=== PATIENT | female | born 1975 | race Two or more races ===

== ENCOUNTER 2018-09-04 22:11 | Observation (INO) | payer MEDICAID ==
[~2018-09-04] VITALS: Ht 142.2 cm; Wt 59.4 kg
[2018-09-04] MEDS ORDERED: PNV1TABL50 MT (23:29)
[2018-09-04] MEDS ORDERED: DEXT 5%/LR + PITOCIN 20UNITS/L 1,000 ML IV SCH (23:29)
[2018-09-04] MEDS ORDERED: METHYLERGONOVINE MALEATE 0.2 MG/ML IM PRN (23:30)
[2018-09-04] MEDS ORDERED: CARBOPROST TROMETHAMINE 250 MCG/ML AMPUL IM PRN (23:30)
[2018-09-04] MEDS: LACTATED RINGERS 1,000 ML IV SCH (23:44)
[2018-09-04 23:53] LABS: BASOPHILS % 0.7 % (0.0-2.0); EOSINOPHILS % 1.7 % (0.0-5.0); HEMATOCRIT. 39.9 % (36.0-48.0); HEMOGLOBIN. 13.9 g/dL (12.0-16.0); LYMPHOCYTES % 14.7 % (20.0-50.0); MEAN CORPUSCULAR HEMOGLOBIN 32.4 pg (28.0-32.0); MEAN CORPUSCULAR VOLUME 93.2 fL (81.0-99.0); MEAN PLATELET VOLUME 7.7 fl (7.4-10.4); MONOCYTES % 6.9 % (2.0-8.0); PLATELET 215 x1000/uL (130-400); RED BLOOD CELL COUNT 4.28 mill/uL (4.2-5.4); RED CELL DISTRIBUTION WIDTH 15.3 % (11.6-14.6)
[2018-09-05] VITALS (8 sets, daily range): BP systolic 96–131; BP diastolic 51–89
[2018-09-05 00:19] LABS: CLARITY URINE CLEAR (CLEAR); COLOR URINE YELLOW (YELLOW); KETONES URINE NEGATIVE (NEGATIVE); LEUKOCYTE ESTERASE URINE TRACE (NEGATIVE); NITRITE URINE NEGATIVE (NEGATIVE); OCCULT BLOOD URINE 1+ (NEGATIVE); PH URINE 6.5 (4.5-8.0); PROTEIN URINE NEGATIVE (NEGATIVE); SPECIFIC GRAVITY URINE 1.006 (1.005-1.030); UROBILINOGEN URINE 0.2 E.U./dL (0.2-1.0)
[2018-09-05 00:22] LABS: INR 0.9; PARTIAL THROMBOPLASTIN TIME 27.8 sec (23.4-31.0); PROTHROMBIN TIME 9.4 sec (9.6-11.0)
[2018-09-05 00:29] LABS: *AMPHETAMINES SCREEN URINE NEGATIVE (NEGATIVE); *BARBITURATES SCREEN URINE NEGATIVE (NEGATIVE); *BENZODIAZEPINES SCREEN URINE NEGATIVE (NEGATIVE); *COCAINE SCREEN URINE NEGATIVE (NEGATIVE)
[2018-09-05 00:30] LABS: CANNABINOID URINE SCREEN NEGATIVE (NEGATIVE); METHADONE URINE SCREEN NEGATIVE (NEGATIVE); OPIATES URINE SCREEN NEGATIVE (NEGATIVE); PHENCYCLIDINE URINE SCREEN NEGATIVE (NEGATIVE)
[2018-09-05] MEDS: LACTATED RINGERS 1,000 ML IV SCH ×2 (00:53→21:15)
[2018-09-05] MEDS ORDERED: ROPIVACAINE HCL/PF EPIDURAL 200 ML EPI SCH (01:15)
[2018-09-05] MEDS ORDERED: FENTANYL CITRATE/PF 50MCG/ML 2ML VIAL ONE (01:18)
[2018-09-05] MEDS ORDERED: MORPHINE SULFATE/PF 1MG/ML 10ML AMP ONE (01:53)
[2018-09-05] MEDS ORDERED: CEFAZOLIN SODIUM 1000MG/VIAL ONE (01:53)
[2018-09-05] MEDS ORDERED: OXYTOCIN 10 UNITS/ML 1ML ONE (01:53)
[2018-09-05] MEDS ORDERED: CITRIC ACID/SODIUM CITRATE SOLN 30ML UDC PO SCH (02:00)
[2018-09-05] MEDS ORDERED: OXYCODONE HCL/ACETAMINOPHEN 5/325MG TABLET PO PRN (02:45)
[2018-09-05] MEDS ORDERED: MIDAZOLAM HCL 2 MG/2 ML VIAL ONE (02:45)
[2018-09-05] MEDS ORDERED: HEMORRHOIDAL SUPP PR PRN (02:45)
[2018-09-05] MEDS ORDERED: BISACODYL 10MG SUPP PR PRN (02:45)
[2018-09-05] MEDS ORDERED: ONDANSETRON HCL 4MG/2ML INJ IV PRN ×2 (02:45→03:45)
[2018-09-05] MEDS ORDERED: HYDROCODONE/ACETAMINOPHEN 5/325MG TABLET PO PRN (02:45)
[2018-09-05] MEDS ORDERED: ONDANSETRON HCL 4MG/2ML INJ ONE (02:50)
[2018-09-05] MEDS ORDERED: DIPHENHYDRAMINE 50MG/ML VIAL IV PRN (03:45)
[2018-09-05] MEDS ORDERED: BUTORPHANOL TARTRATE 2 MG/ML VIAL IV PRN (03:45)
[2018-09-05] MEDS ORDERED: BUTORPHANOL TARTRATE 2 MG/ML VIAL IM PRN (03:45)
[2018-09-05] MEDS ORDERED: NALOXONE HCL 0.4 MG/ML 1ML VIAL IV PRN (03:45)
[2018-09-05] MEDS: DEXT 5%/LR + PITOCIN 20UNITS/L 1,000 ML IV SCH ×2 (03:48→12:05)
[2018-09-05] MEDS: ACETAMINOPHEN 325MG TABLET PO PRN ×3 (06:59→21:51)
[2018-09-05] MEDS: MAGNESIUM/ALUMINUM HYDROXIDE/SIMETHICONE 30ML UDC PO SCH ×4 (07:30→20:49)
[2018-09-05] MEDS: SIMETHICONE 80MG TABLET CHEW PO SCH ×4 (08:00→20:49)
[2018-09-05] MEDS: PRENATAL VIT/FE FUMARATE/FA TABLET PO SCH ×2 (09:00→16:44)
[2018-09-05 10:49] LABS: HEPATITIS B SURFACE ANTIGEN NEGATIVE
[2018-09-05] MEDS ORDERED: DEXT 5%/LR + PITOCIN 20UNITS/L 1,000 ML IV ONE (11:56)
[2018-09-05] MEDS ORDERED: METHYLERGONOVINE MALEATE 0.2 MG/ML ONE (13:17)
[2018-09-05] MEDS ORDERED: CARBOPROST TROMETHAMINE 250 MCG/ML AMPUL IM ONE (13:17)
[2018-09-05] MEDS ORDERED: LIDOCAINE HCL 2%/EPINEPHRINE 1:100,000 20 ML VIAL INFIL ONE (13:25)
[2018-09-05] MEDS: LANOLIN OINT 7GM TUBE TOP PRN (16:46)
[2018-09-05] MEDS: DOCUSATE SODIUM 100MG CAPSULE PO SCH (20:49)
[2018-09-06] MEDS: MAGNESIUM/ALUMINUM HYDROXIDE/SIMETHICONE 30ML UDC PO SCH ×5 (00:44→20:46)
[2018-09-06] MEDS: SIMETHICONE 80MG TABLET CHEW PO SCH ×4 (00:45→20:46)
[2018-09-06] MEDS: DOCUSATE SODIUM 100MG CAPSULE PO SCH ×2 (00:45→20:45)
[2018-09-06] MEDS: IBUPROFEN 800MG TABLET PO PRN ×3 (00:47→14:47)
[2018-09-06 04:00] VITALS: BP 111/82
[2018-09-06 07:02] LABS: BASOPHILS % 0.3 % (0.0-2.0); EOSINOPHILS % 1.7 % (0.0-5.0); HEMATOCRIT. 23.8 % (36.0-48.0); HEMOGLOBIN. 8.2 g/dL (12.0-16.0); LYMPHOCYTES % 8.8 % (20.0-50.0); MEAN CORPUSCULAR HEMOGLOBIN 32.4 pg (28.0-32.0); MEAN CORPUSCULAR VOLUME 94.3 fL (81.0-99.0); MEAN PLATELET VOLUME 7.4 fl (7.4-10.4); MONOCYTES % 6.5 % (2.0-8.0); NEUTROPHILS % 82.7 % (40.0-76.0); PLATELET 149 x1000/uL (130-400); RED BLOOD CELL COUNT 2.53 mill/uL (4.2-5.4); RED CELL DISTRIBUTION WIDTH 15.1 % (11.6-14.6)
[2018-09-06 09:00] VITALS: BP 95/62
[2018-09-06] MEDS: PRENATAL VIT/FE FUMARATE/FA TABLET PO SCH (09:02)
[2018-09-06] MEDS: FERROUS SULFATE 325MG TABLET PO SCH ×3 (09:02→18:21)
[2018-09-06] MEDS: IBUPROFEN 400MG TABLET PO PRN (09:03)
[2018-09-06] MEDS: LANOLIN OINT 7GM TUBE TOP PRN (09:04)
[2018-09-06 17:00] VITALS: BP 94/59
[2018-09-06] MEDS: ACETAMINOPHEN WITH CODEINE 300/30MG TABLET PO PRN ×2 (19:31→23:24)
[2018-09-06 20:00] VITALS: BP 119/69
[2018-09-06] MEDS ORDERED: NEOMY SULF/BACITRAC ZN/POLY OINT 28GM TOP SCH (22:00)
[2018-09-07 00:01] VITALS: BP 103/57
[2018-09-07 04:30] VITALS: BP 125/77
[2018-09-07] MEDS: IBUPROFEN 800MG TABLET PO PRN (04:49)
[2018-09-07 08:00] VITALS: BP 103/65
[2018-09-07] MEDS: PRENATAL VIT/FE FUMARATE/FA TABLET PO SCH (09:05)
[2018-09-07] MEDS: MAGNESIUM/ALUMINUM HYDROXIDE/SIMETHICONE 30ML UDC PO SCH ×3 (09:05→19:52)
[2018-09-07] MEDS: IBUPROFEN 400MG TABLET PO PRN ×3 (09:06→19:49)
[2018-09-07] MEDS: SIMETHICONE 80MG TABLET CHEW PO SCH ×3 (09:06→19:49)
[2018-09-07] MEDS: FERROUS SULFATE 325MG TABLET PO SCH ×2 (09:06→14:03)
[2018-09-07 16:00] VITALS: BP 115/72
[2018-09-08] VITALS: BP 126/72
[2018-09-08] MEDS: IBUPROFEN 800MG TABLET PO PRN ×2 (02:48→09:06)
[2018-09-08 04:00] VITALS: BP 126/70
[2018-09-08] MEDS: SIMETHICONE 80MG TABLET CHEW PO SCH (09:06)
[2018-09-08] MEDS: FERROUS SULFATE 325MG TABLET PO SCH (09:06)
[2018-09-08] MEDS: PRENATAL VIT/FE FUMARATE/FA TABLET PO SCH (09:06)
[2018-09-08] MEDS: MAGNESIUM/ALUMINUM HYDROXIDE/SIMETHICONE 30ML UDC PO SCH (09:06)
== END 2018-09-08 11:40 | disposition home or self-care (01) ==
LOC: INTOOBSV 22:11 → OBSVTOIN 22:11 → 8 EST LDRP 22:11 → 8EST 09-05 06:00
PROVIDERS: ADMIT Obstetrics & Gynecology; ATTEND Obstetrics & Gynecology
DX: O34.219 Maternal care for unspecified type scar from previous cesarean delivery (principal); Z3A.38 38 weeks gestation of pregnancy
CPT/HCPCS: 36415; 59510; 80305; 81003; 85025; 85610; 85730; 86592; 86703; 86762; 86850; 86900; 86901; 87340; 88302; 88307; 96365; 96366; 96375; 99281; G0378; J0595; J0690; J2210; J2250; J2274; J2405; J2590; J2795; J3010; J3490; J7120; J1200; A4315

== ENCOUNTER 2018-09-13 02:58 | Emergency (ER) | payer MEDICAID ==
[~2018-09-13] VITALS: Ht 142.2 cm; Wt 51.6 kg
[~2018-09-13 02:58] MED LIST: PNV1TABL50 MT
[2018-09-13 05:11] LABS: CHLORIDE 108 mEq/L (98-107)
[2018-09-13 05:18] LABS: PROTHROMBIN TIME 10.3 sec (9.6-11.0)
[2018-09-13 05:20] LABS: CLARITY URINE CLEAR (CLEAR); COLOR URINE YELLOW (YELLOW); KETONES URINE NEGATIVE (NEGATIVE); LEUKOCYTE ESTERASE URINE TRACE (NEGATIVE); NITRITE URINE NEGATIVE (NEGATIVE); OCCULT BLOOD URINE TRACE (NEGATIVE); PROTEIN URINE NEGATIVE (NEGATIVE); SPECIFIC GRAVITY URINE 1.006 (1.005-1.030); UROBILINOGEN URINE 0.2 E.U./dL (0.2-1.0)
[2018-09-13 05:21] LABS: BASOPHILS % 0.5 % (0.0-2.0); EOSINOPHILS % 1.8 % (0.0-5.0); HEMATOCRIT. 30.9 % (36.0-48.0); HEMOGLOBIN. 10.5 g/dL (12.0-16.0); LYMPHOCYTES % 17.5 % (20.0-50.0); MEAN CORPUSCULAR HEMOGLOBIN 31.8 pg (28.0-32.0); MEAN CORPUSCULAR VOLUME 93.2 fL (81.0-99.0); MEAN PLATELET VOLUME 6.1 fl (7.4-10.4); MONOCYTES % 8.3 % (2.0-8.0); NEUTROPHILS % 71.9 % (40.0-76.0); PLATELET 424 x1000/uL (130-400); RED BLOOD CELL COUNT 3.32 mill/uL (4.2-5.4); RED CELL DISTRIBUTION WIDTH 14.7 % (11.6-14.6)
[2018-09-13] MEDS ORDERED: ONDANSETRON HCL 4MG/2ML INJ IV NR (05:30)
[2018-09-13 06:08] VITALS: BP 112/72
== END 2018-09-13 06:11 | disposition home or self-care (01) ==
LOC: ER 02:58
DX: N39.0 Urinary tract infection, site not specified (principal); R19.7 Diarrhea, unspecified; Z98.890 Other specified postprocedural states; Z98.51 Tubal ligation status; Z88.6 Allergy status to analgesic agent; Z79.899 Other long term (current) drug therapy
CPT/HCPCS: 36415; 80053; 81003; 81025; 83690; 85025; 85610; 99283; Z7610; J2405